=== PATIENT | female | born 1995 | race African-American/Black ===

== ENCOUNTER 2019-02-25 20:13 | Emergency (ER) | payer OTHER, MEDICAID ==
[~2019-02-25] VITALS: Ht 149.9 cm; Wt 72.6 kg
[2019-02-25 20:19] VITALS: BP 133/73
[2019-02-25] MEDS ORDERED: ALBUTEROL2.5 MG/31 INH (20:23)
[2019-02-25] MEDS ORDERED: VENTOLIN HFA 1818 GM INH ×2 (20:23→20:35)
[2019-02-25] MEDS ORDERED: ALBUTEROL2.5 MG/3 M INH (20:35)
[2019-02-25] MEDS ORDERED: PREDNISONE 20 M20 M1 PO (20:35)
== END 2019-02-25 21:02 | disposition home or self-care (01) ==
LOC: M.ERS 20:13
DX: J45.901 Unspecified asthma with (acute) exacerbation (principal)

== ENCOUNTER 2019-10-26 21:06 | Observation (INO) | payer OTHER, MEDICAID ==
[~2019-10-26] VITALS: Ht 149.9 cm; Wt 78.9 kg
[~2019-10-26 21:06] MED LIST: ALBUTEROL2.5 MG/3 M INH; ALBUTEROL2.5 MG/31 INH; PREDNISONE 20 M20 M1 PO; VENTOLIN HFA 1818 GM INH
[2019-10-26 21:07] VITALS: BP 127/88
[2019-10-26 21:45] LABS: ABSOLUTE EOSINOPHILS 0.4 thou/uL (0.0-0.7); ABSOLUTE LYMPHOCYTES 5.2 thou/uL (0.8-5.3); ABSOLUTE MONOCYTES 0.6 thou/uL (0.0-1.2); ABSOLUTE NEUTROPHILS 3.8 thou/uL (1.6-8.1); BASOPHILS 0.3 %; EOSINOPHILS 3.9 %; HEMATOCRIT 42.3 % (37.0-47.0); LYMPHOCYTES 52.1 %; MCH 28.6 pg (26.0-34.0); MCHC 33.1 g/dL (28.0-37.0); MCV 86.6 fL (80.0-100.0); MONOCYTES 6.1 %; MPV 9.7 fl. (7.2-11.1); NUCLEATED RBCS 0 /100WBC; PLATELET COUNT* 252 thou/uL (150-400); POLYS 37.6 %; RBC 4.88 mil/uL (4.20-5.00); RDW-CV 13.2 % (10.5-14.5)
[2019-10-26 21:48] LABS: CALCIUM 8.5 mg/dL (8.5-10.1); CREATININE 0.9 mg/dL (0.6-1.3); POTASSIUM 3.2 mmol/L (3.5-5.1)
[2019-10-26 21:50] LABS: APTT 29.2 Seconds (25.0-31.3)
[2019-10-26 21:59] LABS: ALBUMIN 3.4 g/dL (3.4-5.0); MAGNESIUM 1.8 mg/dL (1.8-2.4); TOTAL BILIRUBIN 0.4 mg/dL (<0.1-1.0); TOTAL PROTEIN 7.7 g/dL (6.4-8.2)
[2019-10-26 22:33] VITALS: BP 138/75
[2019-10-26 22:50] VITALS: BP 127/77
--- NOTE | 2019-10-27 06:28 | NUR ---
PATIENT ADMITTED TO ROOM 103 FROM THE ER AT APPROXIMATELY 2250. VSS ON 2L 02 VIA NASAL CANNULA. NO C/O SOA AT THIS TIME. PATIENT ORIENTED TO ROOM AND POLICIES AND FALL EDUCATION GIVEN AND FALL AGREEMENT SIGNED. PATIENT IS UP AD-PAMELA. ASSESSMENT CHARTED. MEDICATION GIVEN ORDERED AND CHARTED. IV IN LEFT AC-SL. PATIENT INSTRUCTED TO USE CALL LIGHT WHEN NEEDING ASSISTANCE. HOURLY ROUNDS MADE. WILL CONTINUE WITH PLAN OF CARE AND NURSING TO MONITOR.
[2019-10-27 09:30] VITALS: BP 140/79
[2019-10-27 16:00] VITALS: BP 144/66
--- NOTE | 2019-10-27 16:24 | EKG ---
[place] [address] ELECTROCARDIOGRAM REPORT Name: MARIBEL IVY Room: [address]#: [id number] Admission: 10/26/19 Attend Phys: Kar munoz Sa Discharge: Date of : 89 Date of Service: 10/26/192111 Report #: [id number] THIS REPORT FOR: //name// [facility] ED Test Date: 2019-10-26 Test Time: 21:12:27 Pat Name: MARIBEL IVY Department: Room: [facility] Gender: F Manager Hvac: PLACIDO : 1995 Requested By: Tobi Ruiz Order Number: [id number] MD: Avi Carcamo Measurements Intervals [place] Rate: 92 P: 77 NE: 159 QRS: 83 QRSD: 83 T: 56 QT: 345 QTc: 427 Interpretive Statements Sinus rhythm Baseline wander in lead(s) V4 No previous ECG available for comparison Electronically Signed On 10-27-2019 16:22:24 CDT by Avi Carcamo [email or web address] <ELECTRONICALLY SIGNED> By: Avi Carcamo MD, FACC 10/27/19 1622 11 11 Avi Carcamo MD, [facility] /EPI
--- NOTE | 2019-10-27 18:17 | NUR ---
PATIENT PLEASANT AND COOPERATIVE W/ ASSESS AND CARES. STATES HAVING SOME "LEG TINGLING" AFTER IV LEVAQUIN, PATIENT STATES STOPPED AFTER INFUSION COMPLETED. PATIENT INSTRUCTED TO KEEP NURSING INFORMED IF CONTINUES. PATIENT STATES HAVING CHISHOLM THIS AFTERNOON, SEE MAR, STATES BILAT TEMPORAL AREAS. RM DARKENED, WATCHING TV ON CELLPHONE. PATIENT STATES CH[place]OLM ON RT SIDE OF HEAD AT THIS TIME. REQUESTING WARM WASHCLOTH, DONE. PATIENT DENIES OTHER NEEDS AT THIS TIME. NO SOB/DYPNEA THIS SHIFT. PATIENT REQUESTING SHOWER THIS EVENING. AWAITING CLOTHES DELIVERED FROM BOYFRIEND. CALL LIGHT IN REACH. HRLY ROUNDS DONE. ~TJRN
[2019-10-27 19:15] VITALS: BP 128/76
--- NOTE | 2019-10-28 04:01 | NUR ---
ASSUMED CARE OR PT 10/27/19 AT APPROX 1915. PT A&OX4, ON ROOM AIR, VSS, PAIN MED REQUESTED AND GIVEN ORDERED. PT SLEEPING WELL. ASSESSMENTS AND HOURLY ROUNDINGS COMPLETE. WILL CONTINUE TO MONITOR.
[2019-10-28 05:23] LABS: HEMATOCRIT 38.2 % (37.0-47.0); HEMOGLOBIN 12.8 gm/dL (12.0-15.0); MCHC 33.5 g/dL (28.0-37.0); MCV 86.5 fL (80.0-100.0); RBC 4.42 mil/uL (4.20-5.00); RDW-CV 13.3 % (10.5-14.5); WBC 19.2 thou/uL (4.0-11.0)
[2019-10-28 05:41] LABS: CALCIUM 8.6 mg/dL (8.5-10.1); CREATININE 0.8 mg/dL (0.6-1.3); MAGNESIUM 1.8 mg/dL (1.8-2.4); POTASSIUM 4.7 mmol/L (3.5-5.1)
[2019-10-28 07:20] VITALS: BP 127/80
[2019-10-28] MEDS ORDERED: MEDROL DOSPAK21 TA1 PO (09:47)
[2019-10-28] MEDS ORDERED: LEVAQUIN 500 M500 M3 PO (09:47)
[2019-10-28 10:09] VITALS: BP 127/80
[2019-10-28 10:47] VITALS: BP 127/80
--- NOTE | 2019-10-28 10:47 | NUR ---
PT REMAINED ALERT AND ORIENTED. PT GIVEN DISCHARGE INFORMATION, CARE NOTES, AND PRESCRIPTIONS. IV REMOVED. PT BELONGINGS GATHERED. FALL RISK PRECAUTIONS IN PLACE. HOURLY ROUNDING COMPLETED. PT LEFT VIA WHEELCHAIR WITH NURSING STAFF TO HOME.
== END 2019-10-28 10:49 | disposition home or self-care (01) ==
LOC: M.ERS 21:06 → M.ORTHSURG 21:59 → M.TBA-ER 21:59 → M.ORTHSURG 21:59
PROVIDERS: Family Medicine; Internal Medicine; ADMIT Family Medicine
DX: J96.01 Acute respiratory failure with hypoxia (principal); J45.901 Unspecified asthma with (acute) exacerbation

== ENCOUNTER 2020-04-14 09:42 | Emergency (ER) | payer OTHER, MEDICAID ==
[~2020-04-14] VITALS: Ht 149.9 cm; Wt 74.8 kg
[~2020-04-14 09:42] MED LIST changes: +LEVAQUIN 500 M500 M3 PO; +MEDROL DOSPAK21 TA1 PO
[2020-04-14] MEDS ORDERED: VENTOLIN HFA 1818 GM INH (10:10)
[2020-04-14] MEDS ORDERED: PREDNISONE50 MG PO (10:10)
[2020-04-14] MEDS ORDERED: ALBUTEROL2.5 MG/31 INH (10:10)
[2020-04-14 10:59] VITALS: BP 126/97
== END 2020-04-14 10:59 | disposition home or self-care (01) ==
LOC: M.ERS 09:42
DX: J45.909 Unspecified asthma, uncomplicated (principal)